=== PATIENT | female | born 1965 | race Caucasian/White ===

== ENCOUNTER → 2016-10-13 | Outpatient (CLI) | payer BC ==
--- NOTE | 2016-10-14 13:29 | MM ---
Reason for exam: screening (asymptomatic). Last mammogram was performed 1 year and 1 month ago. History: Family history of breast cancer in maternal aunt at age 60. Benign left US cyst aspiration of the left breast, April 28, 2010. Physical Findings: A clinical breast exam by your physician is recommended on an annual basis and results should be correlated with mammographic findings. MG Screening Mammo w CAD Bilateral CC and MLO view(s) were taken. Prior study comparison: August 29, 2015, bilateral MG screening mammo w CAD. June 19, 2012, CAD bilateral diagnostic mammogram. June 16, 2011, CAD bilateral diagnostic mammogram. The breast tissue is heterogeneously dense. This may lower the sensitivity of mammography. No significant changes when compared with prior studies. ASSESSMENT: Negative, BI-RAD 1 RECOMMENDATION: Routine screening mammogram of both breasts in 1 year.
== END | disposition home or self-care (01) ==
LOC: RADMAMWWP 15:42
PROVIDERS: ATTEND Family Medicine
DX: Z12.31 Encounter for screening mammogram for malignant neoplasm of breast (principal)

== ENCOUNTER → 2018-08-28 | Outpatient (CLI) | payer BC ==
--- NOTE | 2018-08-29 10:26 | MM ---
Reason for exam: screening (asymptomatic). Last mammogram was performed 1 year and 10 months ago. History: Family history of breast cancer in maternal aunt at age 60. Benign left US cyst aspiration of the left breast, April 28, 2010. Physical Findings: A clinical breast exam by your physician is recommended on an annual basis and results should be correlated with mammographic findings. MG Screening Mammo w CAD Bilateral CC and MLO view(s) were taken. Prior study comparison: October 13, 2016, bilateral MG screening mammo w CAD. August 29, 2015, bilateral MG screening mammo w CAD. The breast tissue is heterogeneously dense. This may lower the sensitivity of mammography. No significant changes when compared with prior studies. ASSESSMENT: Negative, BI-RAD 1 RECOMMENDATION: Routine screening mammogram of both breasts in 1 year.
== END ==
LOC: RADMAMWWP 07:13
PROVIDERS: ATTEND Family Medicine
DX: Z12.31 Encounter for screening mammogram for malignant neoplasm of breast (principal)
CPT/HCPCS: 77067

== ENCOUNTER 2018-09-06 07:06 | Day surgery (SDC) | payer BC ==
[2018-09-04 11:20] VITALS: BMI 23.8
[~2018-09-06 07:06] MED LIST: LACTATED RINGERS 1,000 ML IV SCH
[2018-09-06 07:24] VITALS: RESP 18; TEMP 97.8
[2018-09-06] MEDS ORDERED: LACTATED RINGERS 1,000 ML IV ONE (07:25)
[2018-09-06] MEDS ORDERED: LIDOCAINE 1% 20 ML VIAL (10MG/ML) FOR IV START INTRADERMA ONE (07:26)
[2018-09-06] MEDS ORDERED: LIDOCAINE 1% INJ 10MG/ML (20 ML MDV) ONE (08:05)
[2018-09-06] MEDS ORDERED: PROPOFOL 10 MG/ML 20 ML VIAL IV ONE (08:05)
--- NOTE | 2018-09-06 08:21 | P.PCN ---
Date of Procedure: 09/06/18 Procedure(s) Performed: BRIEF HISTORY: Patient is a 53-year-old pleasant female, scheduled for an elective colonoscopy as a part of screening for colorectal neoplasia. PROCEDURE PERFORMED: Colonoscopy. PREOPERATIVE DIAGNOSIS: Screening for colon cancer. IV sedation per Anesthesia. PROCEDURE: After informed consent was obtained, the patient, was brought into the endoscopy unit. IV sedation was administered by Anesthesia under continuous monitoring. Digital rectal examination was normal. Initially the Olympus CF- 160 flexible video colonoscope was then inserted in the rectum, gradually advanced into the cecum without any difficulty. Careful examination was performed as the scope was gradually being withdrawn. Ileocecal valve and the appendiceal orifice were visualized and appeared normal. Prep was excellent. Mucosa of the cecum, ascending colon, transverse colon, descending colon, sigmoid colon, and rectum appeared normal. Retroflexion was performed in the rectum and no lesions were seen. The patient tolerated the procedure well. IMPRESSION: Normal-appearing colon from rectum to cecum with no evidence of colorectal neoplasia. RECOMMENDATIONS: Findings of this examination were discussed with the patient as well as a family. She was advised to have a repeat screening colonoscopy in 10 years.
[2018-09-06 08:45] VITALS: BP 107/72; PULSE 57
== END 2018-09-06 09:14 | disposition home or self-care (01) ==
LOC: ORWHC2ENDO 07:06
PROVIDERS: ATTEND Internal Medicine Gastroenterology
DX: Z12.11 Encounter for screening for malignant neoplasm of colon (principal); K21.9 Gastro-esophageal reflux disease without esophagitis
CPT/HCPCS: J2001; J2704; G0121; 45378

== ENCOUNTER → 2020-12-25 | Outpatient (CLI) | payer OTHER ==
--- NOTE | 2020-12-29 11:13 | MM ---
Reason for exam: screening (asymptomatic). Last mammogram was performed 2 years and 4 months ago. History: Family history of breast cancer in maternal aunt at age 60. Benign left US cyst aspiration of the left breast, April 28, 2010. Physical Findings: A clinical breast exam by your physician is recommended on an annual basis and results should be correlated with mammographic findings. MG 3D Screening Mammo W/Cad Bilateral CC and MLO view(s) were taken. Prior study comparison: August 28, 2018, bilateral MG screening mammo w CAD. October 13, 2016, bilateral MG screening mammo w CAD. The breast tissue is heterogeneously dense. This may lower the sensitivity of mammography. Finding: There are increased fine, grouped/clustered calcifications in the upper outer quadrant, middle position of the left breast. New finding since August 28, 2018 and October 13, 2016. ASSESSMENT: Incomplete: need additional imaging evaluation, BI-RAD 0 RECOMMENDATION: Special view mammogram of the left breast. [facility] will attempt to contact patient to return for supplemental views.
== END | disposition home or self-care (01) ==
LOC: RADMAMWWP 11:11
PROVIDERS: ATTEND Family Medicine
DX: Z12.31 Encounter for screening mammogram for malignant neoplasm of breast (principal); Z80.3 Family history of malignant neoplasm of breast
CPT/HCPCS: 77063; 77067

== ENCOUNTER → 2020-12-31 | Outpatient (CLI) | payer OTHER ==
--- NOTE | 2020-12-31 13:33 | MM ---
Reason for exam: additional evaluation requested from abnormal screening. Last mammogram was performed less than 1 month ago. History: Family history of breast cancer in maternal aunt at age 60. Benign left US cyst aspiration of the left breast, April 28, 2010. Physical Findings: Nurse did not find any significant physical abnormalities on exam. MG 3D Work Up W/Cad LT CC with magnification, LM with magnification, and LM view(s) were taken of the left breast. Prior study comparison: December 25, 2020, bilateral MG 3d screening mammo w/cad. August 28, 2018, bilateral MG screening mammo w CAD. The breast tissue is heterogeneously dense. This may lower the sensitivity of mammography. Finding: There are round, grouped/clustered calcifications in the 2 o'clock upper outer quadrant, middle position of the left breast 5cm from the nipple. New finding since August 28, 2018. These results were verbally communicated with the patient and result sheet given to the patient on 12/31/20. ASSESSMENT: Suspicious, BI-RAD 4 RECOMMENDATION: Stereotactic core biopsy of the left breast. Called Dr. Rivera's office with mammographic findings. Biopsy scheduled for 01/26/21 at 7:00. PRELIMINARY REPORT CALLED AND FAXED TO DR. RIVERA ON 12/31/20.
== END | disposition home or self-care (01) ==
LOC: RADMAMWWP 09:40
PROVIDERS: ATTEND Family Medicine
DX: R92.8 Other abnormal and inconclusive findings on diagnostic imaging of breast (principal)
CPT/HCPCS: 77065; G0279; 77061

== ENCOUNTER → 2021-01-26 | Day surgery (SDC) | payer OTHER ==
[2021-01-26 07:18] VITALS: RESP 16
[2021-01-26 08:47] VITALS: BP 137/68; PULSE 59; TEMP 98.3
--- NOTE | 2021-01-26 12:13 | MM ---
EXAMINATION TYPE: MG stereo VAD BX LT DATE OF EXAM: 01/26/2021 COMPARISON: 12/31/2020, 12/25/2020 CLINICAL HISTORY: 55-year-old female referred for stereotactic core needle biopsy of left breast microcalcifications TECHNIQUE: Stereotactic guided core biopsy of the 2:00 left breast. FINDINGS: The procedure of stereotactic guided core biopsy was explained to the patient. Benefits, alternatives, and risks were discussed. An informed consent was then obtained. The [facility] pathway for biopsy was chosen. [facility] pathway was a lateral approach. I performed the localization, followed by the remainder of the procedure. A vacuum assisted biopsy gun was used to obtain 8 core samples. The patient tolerated the procedure well without any immediate complication. The patient was kept in the radiology department for short stay after the procedure and then discharged home in stable condition. Targeted calcifications are identified in specimen mammogram. Inadvertently, calcified vessel wall is included in one of the specimens. Bleeding was adequately controlled by direct pressure and hemostasis was obtained. Post biopsy mammogram shows the clip to appear in satisfactory position relative to the targeted area of concern on the preprocedure images. IMPRESSION: SUCCESSFUL, UNCOMPLICATED STEREOTACTIC GUIDED CORE BIOPSY OF 2:00 GROUPED LEFT BREAST MICROCALCIFICATIONS. FULL PATHOLOGY RESULTS TO FOLLOW. Pathology Results: Benign LEFT BREAST, STEREOTACTIC CORE BIOPSY: Fibrocystic changes including sclerosing adenosis with calcifications, fibrosis, cysts and focal mild usual type ductal hyperplasia. Recommendation Follow up mammogram of the left breast in 6 months. DESI
== END ==
LOC: RADMAMWWP 07:06
PROVIDERS: ATTEND Family Medicine
DX: N60.12 Diffuse cystic mastopathy of left breast (principal); R92.8 Other abnormal and inconclusive findings on diagnostic imaging of breast; R92.1 Mammographic calcification found on diagnostic imaging of breast; N62 Hypertrophy of breast
CPT/HCPCS: 88305; 19081; A4648; J2001

== ENCOUNTER → 2021-07-16 | Outpatient (CLI) | payer OTHER ==
--- NOTE | 2021-07-16 12:13 | MM ---
Reason for exam: follow-up at short interval from prior study. Last mammogram was performed 6 months ago. History: Family history of breast cancer in maternal aunt at age 60. Benign MG stereo VAD BX LT of the left breast, January 26, 2021. Benign left US cyst aspiration of the left breast, April 28, 2010. Physical Findings: Nurse did not find any significant physical abnormalities on exam. MG 3D Diag Mammo W/Cad LT CC, MLO, LM, spot compression CC, and spot compression MLO view(s) were taken of the left breast. Prior study comparison: December 31, 2020, left breast MG 3d work up w/cad LT. December 25, 2020, bilateral MG 3d screening mammo w/cad. The breast tissue is heterogeneously dense. This may lower the sensitivity of mammography. Previous mammotome biopsy in the left breast with residual lateral microcalcifications redemonstrated at the biopsy site. Medial subareolar focal asymmetry disperses on additional views. No significant new findings when compared with previous films. These results were verbally communicated with the patient and result sheet given to the patient on 07/16/21. ASSESSMENT: Benign, BI-RAD 2 RECOMMENDATION: Return to routine screening mammogram schedule for both breasts. Back on schedule.
== END | disposition home or self-care (01) ==
LOC: RADMAMWWP 08:20
PROVIDERS: ATTEND Family Medicine
DX: R92.8 Other abnormal and inconclusive findings on diagnostic imaging of breast (principal); Z80.3 Family history of malignant neoplasm of breast
CPT/HCPCS: 77065; G0279; 77061

== ENCOUNTER → 2022-07-19 | Outpatient (CLI) | payer OTHER ==
--- NOTE | 2022-07-19 08:29 | BD ---
EXAMINATION TYPE: Axial Bone Density DATE OF EXAM: 07/19/2022 COMPARISON: FIRST DEXA AT [facility] CLINICAL HISTORY: 57 years year old Female. ICD-10 CODE: N95.1 MENOPAUSAL, M89.9DISORDER OF BONE Height: 61IN Weight: 129LB FRAX RISK QUESTIONS: Family History (Parent hip fracture): YES Secondary Osteoporosis: RISK FACTORS HISTORY OF: Active: YES Diet low in dairy products/other sources of calcium: YES Postmenopausal woman: YES HYSTERECTOMY AT 50 MEDICATIONS: Additional Medications: VITAMIN D Additional History: EXAM MEASUREMENTS: Bone mineral densitometry was performed using the [employer] System. Bone mineral density as measured about the Lumbar spine is: ----- L1-L4(G/cm2): 1.174 T Score Values are as follows: ----- L1: -0.3 ----- L2: -0.5 ----- L3: -0.1 ----- L4: 0.4 ----- L1-L4: -0.1 FIRST DEXA AT [facility] Bone mineral density about the R hip (g/cm2): 0.992 Bone mineral density about the L hip (g/cm2): 0.983 T Score values are as follows: -----R Neck: -1.0 -----L Neck: -0.9 -----R Total: -0.1 -----L Total: -0.2 FRAX%s: The graph provided illustrates a 6.6% chance for a major osteoporotic fx and a 0.2% chance fo r the hips probability for fx in 10 years time. IMPRESSION: Osteopenia (T Score between -2.5 and -1). There is slightly increased risk of fracture and the patient may be considered for treatment. Re-Screen 2-5 years. NOTE: T-SCORE=SD OF THE YOUNG ADULT MEAN.
--- NOTE | 2022-07-20 08:39 | MM ---
Reason for Exam: Screening (asymptomatic). Last mammogram was performed 1 year(s) and 7 month(s) ago. Patient History: Menarche at age 17. First Full-Term at age 21. Hysterectomy at age 49. 01/26/2021, Benign Core Biopsy on the left side. 04/28/2010, Benign Cyst Aspiration on the left side. Maternal aunt had breast cancer, age 60. Risk Values: Liza 5 year model risk: 0.9%. NCI Lifetime model risk: 6.4%. Prior Study Comparison: 12/25/2020 Bilateral Screening Mammogram, [facility]. 12/31/2020 Left Diagnostic Mammogram, [facility]. 07/16/2021 Left Diagnostic Mammogram, [facility]. Tissue Density: The breast tissue is heterogeneously dense. This may lower the sensitivity of mammography. Findings: Analyzed By CAD. In the medial aspect of the left breast there are some microcalcifications present which are indeterminate and have developed in the interval approximately 6 to 7 cm from the nipple seen on the CC view. Recommended magnification views. Overall Assessment: Incomplete: need additional imaging evaluation, BI-RAD 0 Management: Diagnostic Mammogram of the left breast. A clinical breast exam by your physician is recommended on an annual basis and results should be correlated with mammographic findings. Electronically signed and approved by: James Klein M.D. Radiologis
== END | disposition home or self-care (01) ==
LOC: RADMAMWWP 07:38
PROVIDERS: ATTEND Family Medicine
DX: Z12.31 Encounter for screening mammogram for malignant neoplasm of breast (principal); N95.1 Menopausal and female climacteric states; M89.9 Disorder of bone, unspecified
CPT/HCPCS: 77063; 77067; 77080

== ENCOUNTER → 2022-07-28 | Outpatient (CLI) | payer OTHER ==
--- NOTE | 2022-07-28 08:18 | MM ---
Reason for Exam: Additional evaluation requested from abnormal screening. Last screening mammogram was performed less than 1 month ago. Patient History: Menarche at age 17. First Full-Term at age 21. Hysterectomy at age 49. 01/26/2021, Benign Core Biopsy on the left side. 04/28/2010, Benign Cyst Aspiration on the left side. Maternal aunt had breast cancer, age 60. Risk Values: Liza 5 year model risk: 0.9%. NCI Lifetime model risk: 6.4%. Prior Study Comparison: 12/31/2020 Left Diagnostic Mammogram, [facility]. 07/16/2021 Left Diagnostic Mammogram, [facility]. 07/19/2022 Bilateral MG 3D screening mammo w/cad, [facility]. Tissue Density: Left: The breast tissue is heterogeneously dense. This may lower the sensitivity of mammography. Findings: Analyzed By CAD. There are scattered faint calcifications demonstrated throughout the left breast. These may represent vascular calcifications. Additional benign vascular calcifications noted. Questioned calcifications within the medial left breast are not well visualized with compression. Overall Assessment: Probably benign, BI-RAD 3 Management: Diagnostic Mammogram of the left breast in 6 months. A clinical breast exam by your physician is recommended on an annual basis and results should be correlated with mammographic findings. This exam should not preclude additional follow-up of suspicious palpable abnormalities. Results were given to the patient verbally at the time of exam. Electronically signed and approved by: Jaime Cheema D.O.
--- NOTE | 2022-07-28 08:18 | MM ---
Reason for Exam: Additional evaluation requested from abnormal screening. Last screening mammogram was performed less than 1 month ago. Patient History: Menarche at age 17. First Full-Term at age 21. Hysterectomy at age 49. 01/26/2021, Benign Core Biopsy on the left side. 04/28/2010, Benign Cyst Aspiration on the left side. Maternal aunt had breast cancer, age 60. Risk Values: Liza 5 year model risk: 0.9%. NCI Lifetime model risk: 6.4%. Prior Study Comparison: 12/31/2020 Left Diagnostic Mammogram, [facility]. 07/16/2021 Left Diagnostic Mammogram, [facility]. 07/19/2022 Bilateral MG 3D screening mammo w/cad, [facility]. Tissue Density: Left: The breast tissue is heterogeneously dense. This may lower the sensitivity of mammography. Findings: Analyzed By CAD. There are scattered faint calcifications demonstrated throughout the left breast. These may represent vascular calcifications. Additional benign vascular calcifications noted. Questioned calcifications within the medial left breast are not well visualized with compression. Overall Assessment: Probably benign, BI-RAD 3 Management: Diagnostic Mammogram of the left breast in 6 months. A clinical breast exam by your physician is recommended on an annual basis and results should be correlated with mammographic findings. This exam should not preclude additional follow-up of suspicious palpable abnormalities. Results were given to the patient verbally at the time of exam. Electronically signed and approved by: Jaime Cheema D.O.
== END | disposition home or self-care (01) ==
LOC: RADMAMWWP 07:45
PROVIDERS: ATTEND Family Medicine
DX: R92.8 Other abnormal and inconclusive findings on diagnostic imaging of breast (principal)
CPT/HCPCS: 77065; G0279; 77061

== ENCOUNTER → 2023-01-19 | Outpatient (CLI) | payer OTHER ==
--- NOTE | 2023-01-19 07:44 | MM ---
Reason for Exam: Follow-up at short interval from prior study. Last screening mammogram was performed 6 month(s) ago. Patient History: Menarche at age 17. First Full-Term at age 21. Hysterectomy at age 49. 01/26/2021, Benign Core Biopsy on the left side. 04/28/2010, Benign Cyst Aspiration on the left side. Maternal aunt had breast cancer, age 60. Risk Values: Liza 5 year model risk: 0.9%. NCI Lifetime model risk: 6.4%. Prior Study Comparison: 10/13/2016 Bilateral Screening Mammogram, [facility]. 08/28/2018 Bilateral Screening Mammogram, [facility]. 12/25/2020 Bilateral Screening Mammogram, [facility]. 12/31/2020 Left Diagnostic Mammogram, [facility]. 07/16/2021 Left Diagnostic Mammogram, [facility]. 07/19/2022 Bilateral MG 3D screening mammo w/cad, [facility]. 07/28/2022 Left MG 3D work up w/cad , [facility]. Tissue Density: Left: The breast tissue is heterogeneously dense. This may lower the sensitivity of mammography. Findings: Analyzed By CAD. Stable scattered calcifications demonstrated throughout the left breast. These are favored to represent vascular calcifications. Addition of a nonvascular calcification noted. No suspicious mass identified. Biopsy clip within left breast. No architectural distortion identified. Overall Assessment: Benign, BI-RAD 2 Management: Screening Mammogram of both breasts in 6 months. A clinical breast exam by your physician is recommended on an annual basis and results should be correlated with mammographic findings. This exam should not preclude additional follow-up of suspicious palpable abnormalities. Results were given to the patient verbally at the time of exam. Electronically signed and approved by: Jaime Cheema D.O.
== END | disposition home or self-care (01) ==
LOC: RADMAMWWP 07:12
PROVIDERS: ATTEND Family Medicine
DX: R92.8 Other abnormal and inconclusive findings on diagnostic imaging of breast (principal); Z80.3 Family history of malignant neoplasm of breast
CPT/HCPCS: 77061; 77065

== ENCOUNTER → 2023-07-19 | Outpatient (CLI) | payer OTHER ==
--- NOTE | 2023-07-20 09:34 | MM ---
Reason for Exam: Screening (asymptomatic). Last screening mammogram was performed 12 month(s) ago. Patient History: Menarche at age 17. First Full-Term at age 21. Hysterectomy at age 49. 01/26/2021, Benign Core Biopsy on the left side. 04/28/2010, Benign Cyst Aspiration on the left side. Maternal aunt had breast cancer, age 60. Maternal aunt had breast cancer at or over age 50. Risk Values: Liza 5 year model risk: 1.0%. NCI Lifetime model risk: 6.3%. Prior Study Comparison: 07/19/2022 Bilateral MG 3D screening mammo w/cad, [facility]. 07/28/2022 Left MG 3D work up w/cad LT, [facility]. 01/19/2023 Left MG 3D diag mammo w/cad LT, [facility]. Tissue Density: The breast tissue is heterogeneously dense. This may lower the sensitivity of mammography. Findings: Analyzed By CAD. There is no suspicious group of microcalcifications or new suspicious mass in either breast. Overall Assessment: Benign, BI-RAD 2 Management: Screening Mammogram of both breasts in 1 year. . Patient should continue monthly self-breast exams. A clinical breast exam by your physician is recommended on an annual basis. This exam should not preclude additional follow-up of suspicious palpable abnormalities. Note on Liza scores and lifetime risk: 1. A Liza score greater than 3% is considered moderate risk. If this is the case, consider specialist referral to assess eligibility for a risk reducing agent. 2. If overall lifetime risk for the development of breast cancer is 20% or higher, the patient may qualify for future screening with alternating mammogram and breast MRI. Electronically signed and approved by: Yaniv Naqvi M.D. Radiologis
== END | disposition home or self-care (01) ==
LOC: RADMAMWWP 07:41
PROVIDERS: ATTEND Family Medicine
DX: Z12.31 Encounter for screening mammogram for malignant neoplasm of breast (principal); Z80.3 Family history of malignant neoplasm of breast
CPT/HCPCS: 77063; 77067

== ENCOUNTER → 2024-07-25 | Outpatient (CLI) | payer OTHER ==
--- NOTE | 2024-07-25 08:10 | MM ---
Reason for Exam: Screening (asymptomatic). Last screening mammogram was performed 12 month(s) ago. Patient History: Menarche at age 17. First Full-Term at age 21. Hysterectomy at age 49. 01/26/2021, Benign Core Biopsy on the left side. 04/28/2010, Benign Cyst Aspiration on the left side. Maternal aunt had breast cancer, age 60. Maternal aunt had breast cancer at or over age 50. Risk Values: Liza 5 year model risk: 1.0%. NCI Lifetime model risk: 6.2%. Prior Study Comparison: 07/28/2022 Left MG 3D work up w/cad LT, [facility]. 01/19/2023 Left MG 3D diag mammo w/cad LT, [facility]. 07/19/2023 Bilateral MG 3D screening mammo w/cad, [facility]. Tissue Density: The breasts are heterogeneously dense, which may obscure small masses. Findings: Analyzed By CAD. Microcalcifications in the upper outer quadrant left breast. Recommend spot magnification view. There is a small retroareolar density in the left breast recommend spot compression view. Overall Assessment: Incomplete: need additional imaging evaluation, BI-RAD 0 Management: Diagnostic Mammogram of the left breast. . Patient should continue monthly self-breast exams. A clinical breast exam by your physician is recommended on an annual basis. This exam should not preclude additional follow-up of suspicious palpable abnormalities. Note on Liza scores and lifetime risk: 1. A Liza score greater than 3% is considered moderate risk. If this is the case, consider specialist referral to assess eligibility for a risk reducing agent. 2. If overall lifetime risk for the development of breast cancer is 20% or higher, the patient may qualify for future screening with alternating mammogram and breast MRI. [facility], , 07/25/2024 8:07 AM. Electronically signed and approved by: César Buchanan M.D. Radiologis
== END ==
LOC: RADMAMWWP 07:03
PROVIDERS: ATTEND Family Medicine
CPT/HCPCS: 77063; 77067

== ENCOUNTER → 2024-08-01 | Outpatient (CLI) | payer OTHER ==
--- NOTE | 2024-08-01 08:59 | MM ---
Reason for Exam: Additional evaluation requested from prior study. Last screening mammogram was performed less than 1 month ago. Patient History: Menarche at age 17. First Full-Term at age 21. Hysterectomy at age 49. 01/26/2021, Benign Core Biopsy on the left side. 04/28/2010, Benign Cyst Aspiration on the left side. Maternal aunt had breast cancer, age 60. Maternal aunt had breast cancer at or over age 50. Risk Values: Lzia 5 year model risk: 1.0%. NCI Lifetime model risk: 6.2%. Prior Study Comparison: 01/19/2023 Left MG 3D diag mammo w/cad LT, [facility]. 07/19/2023 Bilateral MG 3D screening mammo w/cad, [facility]. 07/25/2024 Bilateral MG 3D screening mammo w/cad, [facility]. Tissue Density: Left: The breasts are heterogeneously dense, which may obscure small masses. Findings: Analyzed By CAD. There are loosely grouped calcifications upper outer left breast. Suspicious clusters not felt to be present. Precautionary six-month follow-up is advised. Nodular retroareolar density does not persist. Overall Assessment: Probably benign, BI-RAD 3 Management: Diagnostic Mammogram of the left breast in 6 months. . Results were given to the patient verbally at the time of exam. Patient should continue monthly self-breast exams. A clinical breast exam by your physician is recommended on an annual basis. This exam should not preclude additional follow-up of suspicious palpable abnormalities. Note on Liza scores and lifetime risk: 1. A Liza score greater than 3% is considered moderate risk. If this is the case, consider specialist referral to assess eligibility for a risk reducing agent. 2. If overall lifetime risk for the development of breast cancer is 20% or higher, the patient may qualify for future screening with alternating mammogram and breast MRI. [facility], , 08/01/2024 8:56 AM. Electronically signed and approved by: Yaniv Naqvi M.D. Radiologis
== END | disposition home or self-care (01) ==
LOC: RADMAMWWP 08:31
PROVIDERS: ATTEND Family Medicine
CPT/HCPCS: 77061; 77065

== ENCOUNTER → 2025-01-30 | Outpatient (CLI) | payer OTHER ==
--- NOTE | 2025-01-30 07:58 | MM ---
Reason for Exam: Follow-up at short interval from prior study. Last screening mammogram was performed 6 month(s) ago. Patient History: Menarche at age 17. First Full-Term at age 21. Hysterectomy at age 49. 01/26/2021, Benign Core Biopsy on the left side. 04/28/2010, Benign Cyst Aspiration on the left side. Maternal aunt had breast cancer, age 60. Maternal aunt had breast cancer at or over age 50. Risk Values: Liza 5 year model risk: 1.0%. NCI Lifetime model risk: 6.2%. Prior Study Comparison: 07/19/2023 Bilateral MG 3D screening mammo w/cad, [facility]. 07/25/2024 Bilateral MG 3D screening mammo w/cad, [facility]. 08/01/2024 Left MG 3D work up w/cad , [facility]. Tissue Density: Left: The breasts are heterogeneously dense, which may obscure small masses. Findings: Analyzed By CAD. No change in loosely grouped calcifications upper outer quadrant left breast. No suspicious clusters identified. Overall Assessment: Benign, BI-RAD 2 Management: Screening Mammogram of both breasts in 6 months. . Results were given to the patient verbally at the time of exam. Patient should continue monthly self-breast exams. A clinical breast exam by your physician is recommended on an annual basis. This exam should not preclude additional follow-up of suspicious palpable abnormalities. Note on Liza scores and lifetime risk: 1. A Liza score greater than 3% is considered moderate risk. If this is the case, consider specialist referral to assess eligibility for a risk reducing agent. 2. If overall lifetime risk for the development of breast cancer is 20% or higher, the patient may qualify for future screening with alternating mammogram and breast MRI. [facility], , 01/30/2025 7:55 AM. Electronically signed and approved by: Yaniv Naqvi M.D. Radiologis
== END | disposition home or self-care (01) ==
LOC: RADMAMWWP 07:32
PROVIDERS: ATTEND Family Medicine
DX: R92.8 Other abnormal and inconclusive findings on diagnostic imaging of breast (principal); R92.332 Mammographic heterogeneous density, left breast; Z80.3 Family history of malignant neoplasm of breast
CPT/HCPCS: 77061; 77065